=== PATIENT | male | born 1995 | race African-American/Black ===

== ENCOUNTER 2019-05-15 14:15 | Inpatient (IN) | payer SELFPAY ==
[2019-05-15 15:37] VITALS: BP 134/82; PULSE 77; O2SAT 98
[2019-05-15 21:07] VITALS: BP 102/56; PULSE 92; RESP 20; TEMP 37.2; O2SAT 95
[2019-05-16 06:00] VITALS: BP 92/56; PULSE 75; RESP 17; TEMP 36.9; O2SAT 98
--- NOTE | 2019-05-16 08:20 | PM.NHP ---
Providers/Chief Complaint Admitting Physician: Taiwo Spicer MD Chief Complaint: SCHIZOPHRENIA HPI NPU History of Present Illness Chief complaint: Thats not my real name. Somebody gave me that name when my family broke up when I was 4. History of present illness:Abdi Saldaña is a 24 year old male He was transferred from the emergency room in [place] and is not a reliable source of information so we are piecing this together as best to go. He was apparently brought to the emergency room [place] on 11 May by ambulance. According to the affidavit, he presented with significant psychosis . The affidavit states that the patient complained of hearing voices and wasn't able to answer basic questions due to psychosis and confusion. His urine drug screen was positive for amphetamines and marijuana. He states that he has not been using amphetamines. He was transferred to [facility] on 15 May and is now interviewed the morning of 16 May. Today, he says that he needs to get back on his medications. He says that he was taking Abilify and trazodone. He says that he is not taking either medication for over a year. He had a psychiatrist in the past but he has been in [facility] for the past year and has not had any medication. When asked what the Abilify does for him, he says that it gets his spirit in the right alignment and he is willing to take a medication to get his spirit in the right alignment. He denies that he is having auditory or visual hallucinations. He cannot explain any further how the medication helps her what that means for him to have his spirit in the right alignment. He objects to the idea of injectable medication that would help with noncompliance. He is not necessarily asking for Abilify but for a medication that will get his spirit in the right alignment. He says that he also takes trazodone for sleep. Mental health history: The patient recalls having been in this psychiatric unit 2 years ago. He cannot say how long it was that he was here but does recall the event. Records from admission here on 10/01/2014 through 10/07/2014 This is the totality of physician records for that stay: The patient was transferred from [facility] on a 96 hour hold for exacerbation of schizophrenia. He states he has been talking back to the voices. States he hears at least 2 voices, some men, some women, which converse with each other and talk to him as well. During his diagnostic interview, there is significant thought blocking and he is a poor historian. He denies sustained depressed mood. He states he was on antipsychotics in the past, but they make me sleepy when I had to work so I stopped them . Denies anxiety. Paliperidone Palmitate (Invega Sustenna) 156 Mg/1 Ml Disp.syrin 156 MG IM q30d Due 11/06/14 #1 Ref 2 MG Benztropine (Cogentin) 1 Mg Tablet 1 MG PO DAILY #30 Ref 0 Paliperidone (Invega) 3 Mg Tab 9 MG PO DAILY #30 Ref 0 Social history:The only social history that he would provide was that he moved to [place] from [place] when he was 4 years old when his family broke up. He has been in [facility] for the past year. He is homeless at this time and is highly motivated to find lodging once he is discharged from here. He will not discuss any social issues such as family or friends. Legal history:The patient has quite a history beginning in 1993 when he was arrested for possession of drugs with intent to sell. Since that time, he has been convicted of drug possession, and remove the vehicle, driving without a license, driving without auto insurance, has had multiple DUIs, convicted on DUI?aggravated offender status 2010, convicted on chronic offender DUI in 2011, has been charged with domestic assault on 3 occasions, has also been convicted on sexual misconduct with the child and most recently was released from [facility] after a 1 year long term sentence with 2 years supervise probation or violating terms of his probation on the sexual misconduct charge. In addition in 2014 it appears that his DWI was associated with a police kya that wound up also including charges of reckless endangerment, and multiple traffic violations. Past medical history:Again, the patient is not a reliable source of information. According to the records provided from [facility] in [place], he has no history of surgeries or chronic medical illness. Mental Status Exam: The patient is an alert -[place] male appearing approximately his stated age. He sits in a tense posture and has a mildly elevated psychomotoric activity. His speech is quick but not pressured. His thought processes are disorganized. His answers seem to be related to the questions being asked at least to the extent that he feels he is answering her questions. However the answers frequently make no sense. He demonstrates loose associations and flight of ideas. While he was positive for amphetamines on admission, it should be noted that he is 4 days out from his last likely use of amphetamines. Appearance: hygiene is fair; no gross neurological deficits., gait is unremarkable; AIMS=0 Speech: Speech is of rapid rate and rhythm and easily understood. Thought processes: Thought processes are ideosyncratic. Judgment is not adequate for safety. Psychotic processes: There is mild guarding but no paranoia. There is no attention to the internal stimuli. Auditory and visual hallucinations are denied. Judgment: Insight is poor. Problem solving skills are not adequate for safety. Orientation: The patient is oriented to person, place time and situation. Memory: no deficits noted in immediate, intermediate, or remote spheres. Attention: The patient is alert and interpersonally engaged. Language: Verbalizations are coherent. Fund of knowledge: Fund of knowledge is poor. Affect/Mood: Affect is consistent with a manic mood. he denied suicidal ideation Affective range appropriate. Psychosis: perception impaired through disorganized thought and cognitive distortion; reality testing impaired Diagnoses: schizophrenia - disorganized type r/o bipolar disorder - manic state Assessment:This is difficult to assess given that the only background information we have is a medical record from his presentation here 4 years ago and his list of publicly recorded felony arrests. Fortunately, the patient is agreeable to initiating medication that he reports has been effective for him in past. Treatment plan: Due to the psychiatric conditions and treatment listed in the Assessment and Plan - the patient requires continued hospitalization. Will provide a safe and therapeutic environment for patient.. Will continue inpatient treatment to allow for medication adjustment and monitoring. Will continue q15 min safety checks. This is difficult to assess given that the only background information we have is a medical record from his presentation here 4 years ago and his list of publicly recorded felony arrests. Fortunately, the patient is agreeable to initiating medication that he reports has been effective for him in past.We will start with Abilify 10 mg twice daily which is double the dose previously reported but may serve as a bolus dose to get him started. He will also continue trazodone. Staff has been informed to use the when necessary lorazepam liberally as he is at risk for agitation and irritability that may put the safety of others at risk. Monitor patient's mood, sleep, appetite, and behavior closely. Encourage patient to participate in individual and group therapeutic sessions on the dav[facility]. Estimated length of stay 5 days The expected benefits and potential side effects of patient's psychiatric medications were discussed with the patient. The patient understands and consents to treatment.CRITERIA FOR DISCHARGE: stable on medications and no longer an Imminent risk Meds NPU Home Medications Medication Instructions Recorded Confirmed Type Invega 05/15/19 History aripiprazole [Abilify] 10 mg PO DAILY 05/15/19 History fluticasone propionate [Flonase INTRANASAL 05/15/19 History Allergy Relief] trazodone 05/15/19 History Allergies Allergy/AdvReac Type Severity Reaction Status Date / Time No Known Allergies Allergy Verified 05/15/19 15:22 Vitals/I&O/Wt Last Vital Signs Temp 98.4 F 05/16/19 06:00 Pulse 75 05/16/19 06:00 Resp 17 05/16/19 06:00 BP 92/56 05/16/19 06:00 Pulse Ox 98 05/16/19 06:00 Weight last 48 hrs Weight 64.41 kg A&P Additional A&P Information Diagnoses: schizophrenia - disorganized type r/o bipolar disorder - manic state Assessment:This is difficult to assess given that the only background information we have is a medical record from his presentation here 4 years ago and his list of publicly recorded felony arrests. Fortunately, the patient is agreeable to initiating medication that he reports has been effective for him in past. Treatment plan: Due to the psychiatric conditions and treatment listed in the Assessment and Plan - the patient requires continued hospitalization. Will provide a safe and therapeutic environment for patient.. Will continue inpatient treatment to allow for medication adjustment and monitoring. Will continue q15 min safety checks. This is difficult to assess given that the only background information we have is a medical record from his presentation here 4 years ago and his list of publicly recorded felony arrests. Fortunately, the patient is agreeable to initiating medication that he reports has been effective for him in past.We will start with Abilify 10 mg twice daily which is double the dose previously reported but may serve as a bolus dose to get him started. He will also continue trazodone. Staff has been informed to use the when necessary lorazepam liberally as he is at risk for agitation and irritability that may put the safety of others at risk. Monitor patient's mood, sleep, appetite, and behavior closely. Encourage patient to participate in individual and group therapeutic sessions on the davis. Estimated length of stay 5 days The expected benefits and potential side effects of patient's psychiatric medications were discussed with the patient. The patient understands and consents to treatment.CRITERIA FOR DISCHARGE: stable on medications and no longer an Imminent risk Involuntary Hold Information 96 Hour Hold: 96 Hour Involuntary Admission: Yes Attestations NPU Medical Necessity Statement*: Patient remained in the hospital another 4-5 nights first 96 hour involuntary commitment. Coding Level of Care Code Acute Accounts Manager for Kiersten Jones
[2019-05-16] MEDS: ARIPiprazole 10 mg Tablet PO ×2 (10:08→17:01)
[2019-05-16] MEDS: hyDROXYzine 25 mg Capsule 50 MG PO (10:09)
--- NOTE | 2019-05-16 10:09 | PC.NURSE ---
Addendum entered by Kathryn Null LPN 05/16/19 12:01: prn med effective no further c/o anxiety currently Original Note: PRN VISTARIL 50 MG GIVEN PO PER PT C/O ANXIETY WILL CONT TO MONITOR
[2019-05-16 13:58] VITALS: BP 102/67; PULSE 94; RESP 18; TEMP 37.5; O2SAT 99
[2019-05-16] MEDS: trazodone 100 mg Tablet PO (20:08)
[2019-05-16 21:34] VITALS: BP 90/53; PULSE 84; RESP 16; TEMP 37.1; O2SAT 97
[2019-05-17 05:58] VITALS: BP 107/64; PULSE 100; RESP 18; TEMP 37.2; O2SAT 97
[2019-05-17] MEDS: ARIPiprazole 10 mg Tablet PO (08:28)
--- NOTE | 2019-05-17 13:26 | PM.NDC ---
Reason for Visit Reason for Visit: Reason For Visit: SCHIZOPHRENIA Hospital Course Discharge Summary Chief complaint: Thats not my real name. Somebody gave me that name when my family broke up when I was 4. History of present illness:Abdi Saldaña is a 24 year old male He was transferred from the emergency room in [place] and is not a reliable source of information so we are piecing this together as best to go. He was apparently brought to the emergency room [place] on 11 May by ambulance. According to the affidavit, he presented with significant psychosis . The affidavit states that the patient complained of hearing voices and wasn't able to answer basic questions due to psychosis and confusion. His urine drug screen was positive for amphetamines and marijuana. He states that he has not been using amphetamines. He was transferred to [facility] on 15 May and is now interviewed the morning of 16 May. Today, he says that he needs to get back on his medications. He says that he was taking Abilify and trazodone. He says that he is not taking either medication for over a year. He had a psychiatrist in the past but he has been in nursing home for the past year and has not had any medication. When asked what the Abilify does for him, he says that it gets his spirit in the right alignment and he is willing to take a medication to get his spirit in the right alignment. He denies that he is having auditory or visual hallucinations. He cannot explain any further how the medication helps her what that means for him to have his spirit in the right alignment. He objects to the idea of injectable medication that would help with noncompliance. He is not necessarily asking for Abilify but for a medication that will get his spirit in the right alignment. He says that he also takes trazodone for sleep. Mental health history: The patient recalls having been in this psychiatric unit 2 years ago. He cannot say how long it was that he was here but does recall the event. Records from admission here on 10/01/2014 through 10/07/2014 This is the totality of physician records for that stay: The patient was transferred from [facility] on a 96 hour hold for exacerbation of schizophrenia. He states he has been talking back to the voices. States he hears at least 2 voices, some men, some women, which converse with each other and talk to him as well. During his diagnostic interview, there is significant thought blocking and he is a poor historian. He denies sustained depressed mood. He states he was on antipsychotics in the past, but they make me sleepy when I had to work so I stopped them . Denies anxiety. Paliperidone Palmitate (Invega Sustenna) 156 Mg/1 Ml Disp.syrin 156 MG IM q30d Due 11/06/14 #1 Ref 2 MG Benztropine (Cogentin) 1 Mg Tablet 1 MG PO DAILY #30 Ref 0 Paliperidone (Invega) 3 Mg Tab 9 MG PO DAILY #30 Ref 0 Social history:The only social history that he would provide was that he moved to [place] from [place] when he was 4 years old when his family broke up. He has been in nursing home for the past year. He is homeless at this time and is highly motivated to find lodging once he is discharged from here. He will not discuss any social issues such as family or friends. Legal history:The patient has quite a history beginning in 1993 when he was arrested for possession of drugs with intent to sell. Since that time, he has been convicted of drug possession, and remove the vehicle, driving without a license, driving without auto insurance, has had multiple DUIs, convicted on DUI?aggravated offender status 2010, convicted on chronic offender DUI in 2011, has been charged with domestic assault on 3 occasions, has also been convicted on sexual misconduct with the child and most recently was released from nursing home after a 1 year long-term sentence with 2 years supervise probation or violating terms of his probation on the sexual misconduct charge. In addition in 2014 it appears that his DWI was associated with a police kya that wound up also including charges of reckless endangerment, and multiple traffic violations. Past medical history:Again, the patient is not a reliable source of information. According to the records provided from [facility] in [place], he has no history of surgeries or chronic medical illness. Diagnoses: schizophrenia - disorganized type r/o bipolar disorder - manic state Assessment:This is difficult to assess given that the only background information we have is a medical record from his presentation here 4 years ago and his list of publicly recorded felony arrests. Fortunately, the patient is agreeable to initiating medication that he reports has been effective for him in past. Treatment plan: Due to the psychiatric conditions and treatment listed in the Assessment and Plan - the patient requires continued hospitalization. Will provide a safe and therapeutic environment for patient.. Will continue inpatient treatment to allow for medication adjustment and monitoring. Will continue q15 min safety checks. This is difficult to assess given that the only background information we have is a medical record from his presentation here 4 years ago and his list of publicly recorded felony arrests. Fortunately, the patient is agreeable to initiating medication that he reports has been effective for him in past.We will start with Abilify 10 mg twice daily which is double the dose previously reported but may serve as a bolus dose to get him started. He will also continue trazodone. Staff has been informed to use the when necessary lorazepam liberally as he is at risk for agitation and irritability that may put the safety of others at risk. HD#3: PAtient was complaint with medication. He was thinking more clearly today. He asked if he was a voluntary patient. He asked ot be discharged. He stated his intention to continue Abilify. HEcould not put into workds how it helped im but he said the year that he was incarcerated and di dnot have the medication made his brain and spirit no longer in alignment. IT was recommended that he remain in the hospital a few more days to make sure the Abilify was well tolerated and the dosage was right. He was recommended to utilize the acces to Abilify Maintena mnthly injections for improvd efficacy and reduced side effects. He refused. He denied suicidal and homicidal ideation. HE stated his intent ot go stay with a friend locally so we did not need to transport him back to his original place of origin. HE was discharged AGAINST MEDICAL ADVICE with a prescriptoin for Abilify 15 mg daily and one month suplly with 3 RF. Involuntary Hold Information 96 Hour Hold: 96 Hour Involuntary Admission: Yes Discharge Data Vitals: Last Vital Signs Temp 98.9 F 05/17/19 05:58 Pulse 100 05/17/19 05:58 Resp 18 05/17/19 05:58 BP 107/64 05/17/19 05:58 Pulse Ox 97 05/17/19 05:58 Discharge Plan Discharge Patient Disposition: Home, Self-Care Condition: Stable Prescriptions: New aripiprazole 30 mg Tablet 15 mg PO DAILY Qty: 30 RF: 4 Discontinued aripiprazole [Abilify] 10 mg Tablet 10 mg PO DAILY RF: 0 fluticasone propionate [Flonase Allergy Relief] 50 mcg/actuation [place],Suspension INTRANASAL RF: 0 Invega RF: 0 trazodone 50 mg Tablet RF: 0 Discharge Orders: Discharge Order (Routine); Ordered 05/17/19 Ordered By: Taiwo Spicer Discharge Attestations NPU Time Spent in Discharge Care*: less than 30 min Coding Level of Care Code Acute Slicing Machine Tender for Kiersten Jones
[2019-05-17 13:44] VITALS: BP 121/70; PULSE 94; RESP 20; TEMP 36.9; O2SAT 97
[2019-05-17 14:01] VITALS: BP 121/70; PULSE 94; RESP 20; TEMP 36.9; O2SAT 97
== END 2019-05-17 16:14 | disposition home or self-care (01) | DRG 885 ==
PROVIDERS: Admitting Provider Psychiatry & Neurology Psychiatry; Visit Provider Psychiatry & Neurology Psychiatry
DX: F20.1 Disorganized schizophrenia (principal); Z59.0 Homelessness
CPT/HCPCS: 12345